=== PATIENT | male | born 1985 | race Two or more races ===

== ENCOUNTER 2017-02-09 04:29 | Emergency (ER) | payer BC ==
[~2017-02-09] VITALS: Ht 172.7 cm; Wt 81.6 kg
--- NOTE | 2017-02-09 04:55 | NUR ---
Pt ambulated to room with steady gait. Pt c/o intermittent sharp RUQ pain radiating to back and right side of chest. Pt also states he had an episode of N/V. Pt resting in position of comfort for self, awaiting further eval. Family at bedside.
[2017-02-09 05:32] LABS: BASOPHILS % (AUTO) 0.6 % (0.0-2.0); EOSINOPHILS # (AUTO) 0.2 K/uL (0.0-0.7); EOSINOPHILS % (AUTO) 2.2 % (0.0-7.0); HEMATOCRIT 44.5 % (40-50); HEMOGLOBIN 14.9 G/DL (14.0-18.0); LYMPHOCYTES # (AUTO) 2.3 K/UL (0.8-4.8); LYMPHOCYTES % (AUTO) 30.3 % (20.5-51.5); MEAN CORPUSCULAR HEMOGLOBIN 28.7 UUG (27.0-31.0); MEAN CORPUSCULAR HGB CONC 34 g/dL (32.0-37.0); MEAN CORPUSCULAR VOLUME 85.7 FL (82.0-92.0); MONOCYTES # (AUTO) 0.7 K/UL (0.1-1.30); MONOCYTES % (AUTO) 8.8 % (0.0-11.0); NEUTROPHILS # (AUTO) 4.3 K/UL (1.8-8.9); NEUTROPHILS % (AUTO) 58.1 % (38.5-71.5); PLATELET COUNT (AUTO) 269 K/UL (150-450); WHITE BLOOD COUNT (AUTO) 7.5 K/UL (4.0-11.2)
--- NOTE | 2017-02-09 05:42 | NUR ---
Pt seen by Dr. Rosales. Pt medicated for discomfort, will monitor for effects of medication. Pt resting in position of comfort for self.
[2017-02-09] MEDS ORDERED: KETOROLAC TROMETHAMINE 15 MG INJ IVP ONE ×2 (05:45→06:45)
[2017-02-09] MEDS ORDERED: KETOROLAC TROMETHAMINE 15 MG INJ ONE ×2 (05:52→06:55)
--- NOTE | 2017-02-09 06:15 | NUR ---
Pt sts pain improved and is tolerable at this time. Pt ambulated to and from br with steady gait.
[2017-02-09 06:35] LABS: BILIRUBIN,DIRECT 0.1 mg/dL (0.0-0.2); BILIRUBIN,TOTAL 0.4 mg/dL (0.2-1.0); POTASSIUM 3.8 mmol/L (3.5-5.1); TOTAL PROTEIN, SERUM 7.6 g/dL (6.4-8.2)
--- NOTE | 2017-02-09 06:44 | NUR ---
Pt c/o pain increasing and requested pain medication. Dr. Rosales notified and pt medicated, will monitor for effects of medication. Pt resting in position of comfort for self. Family at bedside.
--- NOTE | 2017-02-09 07:02 | NUR ---
Report given to RUBIO Blank. I relinquish care of pt at this time.
--- NOTE | 2017-02-09 09:17 | NUR ---
pt was d/c to home. d/c instructions given to the pt. pt denies pain. no s/s of distress. no sob. no n/v.
[2017-02-09 09:18] VITALS: BP 139/81
== END 2017-02-09 09:32 | disposition home or self-care (01) ==
LOC: ER 04:38
DX: R07.81 Pleurodynia (principal); R10.11 Right upper quadrant pain
CPT/HCPCS: 36415; 70030-TC; 71010; 83690; 85025; 85730; 93005; A4663; J1885